=== PATIENT | male | born 1960 | race Caucasian/White ===

== ENCOUNTER 2016-10-17 14:43 | Inpatient (IN) | payer MEDICAID ==
[~2016-10-17] VITALS: Ht 170.2 cm; Wt 99.8 kg
[~2016-10-17 14:43] MED LIST: ASPI81CH43 PO; CLOP75TA28 PO; COURX10 PO; Furosemide PO; GLY5T PO; ISOS20TA56 PO; LOSA100T26 PO; METF1000 PO; METO50TA7 PO; PERCOT PO; ROSU10TA16 PO
[2016-10-17] MEDS ORDERED: ALBUTEROL SULF 2.5 MG/0.5ML(0.5%) NEB SOLN HHN STA (15:36)
[2016-10-17] MEDS ORDERED: ONDANSETRON HCL 4 MG/2 ML VIAL IV ONE (15:45)
[2016-10-17] MEDS ORDERED: IPRATROPIUM BROM 0.5 MG/2.5ML INH SOL NEB ONE (15:45)
[2016-10-17] MEDS ORDERED: LORazepam 2MG/ML-1ML VIAL IV ONE (15:45)
[2016-10-17 17:14] LABS: Basophils # (auto) 0 uL; Basophils % (auto) 0.3 % (0.0-2.0); Eosinophils # (auto) 0.1 uL; Eosinophils % (auto) 1.8 % (0.0-7.0); Hematocrit 42.3 % (41.0-53.0); Hemoglobin 14.9 g/dL (13.5-17.5); Lymphocytes # (auto) 1.5 uL; Lymphocytes % (auto) 22.4 % (10.0-50.0); Mean Corpuscular Hemoglobin 31.2 pg (28.0-32.0); Mean Corpuscular Hgb Conc. 35.1 g/dL (32.0-36.0); Mean Corpuscular Volume 88.9 fL (80.0-100.0); Mean Platelet Volume 11.1 fL (7.4-10.4); Monocytes # (auto) 0.6 uL; Monocytes % (auto) 9.6 % (0.0-12.0); Neutrophils # (auto) 4.4 uL; Neutrophils % (auto) 65.9 % (37.0-80.0); Platelet Count (auto) 140 10^3/uL (140-450); Red Cell Distribution Width 13.4 % (11.6-16.0); White Blood Cell 6.7 10^3/uL (4.4-10.8)
[2016-10-17 19:35] LABS: Albumin 2.7 g/dL (3.4-5.0); BUN/Creatinine Ratio 11.6; Calcium 7.7 mg/dL (8.5-10.1); Magnesium 1.9 mg/dL (1.6-2.6); Potassium 3.5 mmol/L (3.5-5.1)
[2016-10-17 19:44] LABS: B-Type Natriuretic Peptide 77.54 pg/mL (0-100)
[2016-10-17 19:51] LABS: Temperature: 23.1 C (20.0-25.0)
[2016-10-17 20:23] LABS: Bilirubin, Total 0.3 mg/dL (0.2-1.0); Total Protein 6.5 g/dL (6.4-8.2)
[2016-10-17 20:32] LABS: Lactic Acid 3.6 mmol/L (0.4-2.0)
[2016-10-17 20:38] LABS: REFLEX LACTIC ACID YES OR NO NO
[2016-10-17 21:28] LABS: INR 0.97 (0.9-1.15); Partial Thromboplastin Time 27.3 sec (22.64-33.71)
[2016-10-17] MEDS ORDERED: IOHEXOL 350 MG/ML 100ML IJ ONE (21:54)
[2016-10-17] MEDS ORDERED: HYDROcodone-ACET 5/325MG TAB PO PRN (23:00)
[2016-10-17] MEDS ORDERED: SODIUM CHLORIDE 0.9% 1,000 ML IV ONE (23:00)
[2016-10-17] MEDS ORDERED: cefTRIAXone 1GM/50ML D5W 50 ML IV ONE (23:00)
[2016-10-17] MEDS ORDERED: METOPROLOL SUCCINATE XL 50 MG TAB PO ONE (23:00)
[2016-10-17] MEDS ORDERED: ALBUTEROL SULF 2.5 MG/0.5ML(0.5%) NEB SOLN NEB PRN (23:00)
[2016-10-17] MEDS ORDERED: ENOXAPARIN SOD 100 MG/1 ML SYRINGE SC ONE (23:00)
[2016-10-17] MEDS ORDERED: SODIUM CHLORIDE 0.9% 500 ML IV ONE (23:00)
[2016-10-17] MEDS ORDERED: ONDANSETRON HCL 4 MG/2 ML VIAL IV PRN (23:00)
[2016-10-17] MEDS ORDERED: MORPHINE SULF INJ 2 MG/ML SYRINGE 1ML IV PRN (23:00)
[2016-10-17] MEDS ORDERED: ACETAMINOPHEN 325 MG TAB PO PRN (23:00)
[2016-10-17] MEDS ORDERED: DEXTROSE (50%) 50ML SYRG IV PRN (23:00)
[2016-10-17] MEDS ORDERED: NITROGLYCERIN 0.4 MG SL TAB SL PRN (23:00)
[2016-10-17 23:17] VITALS: BP 174/73
[2016-10-17] MEDS: ISOSORBIDE DINITRATE 10 MG TAB PO SCH (23:27)
[2016-10-18] VITALS (7 sets, daily range): BP systolic 118–142; BP diastolic 59–94
[2016-10-18] MEDS: ACCU-CHEK COMFORT CURVE STRIP VI SCH ×5 (00:24→23:41)
[2016-10-18] MEDS: InsuLIN REG 1unit/0.01ml Soln (100units/ml) SC SCH ×5 (01:00→23:46)
[2016-10-18] MEDS: ISOSORBIDE DINITRATE 10 MG TAB PO SCH ×3 (06:08→18:13)
[2016-10-18 07:28] LABS: Basophils # (auto) 0 uL; Basophils % (auto) 0.4 % (0.0-2.0); Eosinophils # (auto) 0.1 uL; Eosinophils % (auto) 0.8 % (0.0-7.0); Hematocrit 35.2 % (41.0-53.0); Hemoglobin 12.3 g/dL (13.5-17.5); Lymphocytes # (auto) 1.6 uL; Lymphocytes % (auto) 18.4 % (10.0-50.0); Mean Corpuscular Hemoglobin 31.2 pg (28.0-32.0); Mean Corpuscular Volume 88.9 fL (80.0-100.0); Mean Platelet Volume 9.5 fL (7.4-10.4); Monocytes # (auto) 0.7 uL; Monocytes % (auto) 8.6 % (0.0-12.0); Neutrophils # (auto) 6.2 uL; Neutrophils % (auto) 71.8 % (37.0-80.0); Platelet Count (auto) 154 10^3/uL (140-450); Red Cell Distribution Width 13.8 % (11.6-16.0); White Blood Cell 8.6 10^3/uL (4.4-10.8)
[2016-10-18 07:52] LABS: Albumin 2.6 g/dL (3.4-5.0); Bilirubin, Total 0.4 mg/dL (0.2-1.0); Calcium 7.9 mg/dL (8.5-10.1); Potassium 3.7 mmol/L (3.5-5.1); Total Protein 6.2 g/dL (6.4-8.2)
[2016-10-18] MEDS: METOPROLOL SUCCINATE XL 50 MG TAB PO SCH (10:00)
[2016-10-18] MEDS: LOSARTAN POTASSIUM 25 MG TAB PO SCH (10:00)
[2016-10-18] MEDS: CLOPIDOGREL BISULFATE 75 MG TAB PO SCH (10:37)
[2016-10-18] MEDS: HCTZ 25 MG TAB PO SCH (10:37)
[2016-10-18] MEDS: FUROSEMIDE 20 MG TAB PO SCH (10:38)
[2016-10-18] MEDS: FAMOTIDINE 20 MG TAB PO SCH ×2 (10:38→22:48)
[2016-10-18] MEDS: ENOXAPARIN SOD 40 MG/0.4 ML SYRINGE SC SCH (10:41)
[2016-10-18 12:56] LABS: Urine Bilirubin Negative (Negative); Urine Color Yellow (Yellow); Urine Ketone Negative (Negative); Urine Mucus FEW (None Seen); Urine Nitrite Negative (Negative); Urine Squamous Epithelial Cell FEW /hpf (<5); Urine Urobilinogen Normal (Negative)
[2016-10-18 12:59] LABS: Urine RBC 9 /hpf (0 - 3)
[2016-10-18 13:36] LABS: Urine Blood 1+ /uL (Negative); Urine Glucose 4+ mg/dL (Normal)
[2016-10-18] MEDS ORDERED: ATORVASTATIN 20 MG TAB PO SCH (22:00)
[2016-10-18] MEDS ORDERED: cefTRIAXone 1GM/50ML D5W 50 ML IV SCH (22:00)
[2016-10-18] MEDS ORDERED: PATIENTS OWN MEDICATION (crestor 20 MG) PO SCH (22:00)
[2016-10-19 05:00] VITALS: BP 149/95
[2016-10-19] MEDS: ACCU-CHEK COMFORT CURVE STRIP VI SCH (06:00)
[2016-10-19] MEDS: InsuLIN REG 1unit/0.01ml Soln (100units/ml) SC SCH (06:00)
[2016-10-19] MEDS: ISOSORBIDE DINITRATE 10 MG TAB PO SCH (06:15)
[2016-10-19 08:08] LABS: Potassium 3.7 mmol/L (3.5-5.1)
[2016-10-19 09:00] VITALS: BP 140/72
[2016-10-19] MEDS ORDERED: RIVAROXABAN 20 MG TAB PO ONE (09:15)
[2016-10-19] MEDS: CLOPIDOGREL BISULFATE 75 MG TAB PO SCH (09:52)
[2016-10-19] MEDS: ENOXAPARIN SOD 40 MG/0.4 ML SYRINGE SC SCH (09:52)
[2016-10-19] MEDS: FAMOTIDINE 20 MG TAB PO SCH (09:52)
[2016-10-19] MEDS: FUROSEMIDE 20 MG TAB PO SCH (09:53)
[2016-10-19] MEDS: LOSARTAN POTASSIUM 25 MG TAB PO SCH (09:53)
[2016-10-19] MEDS: HCTZ 25 MG TAB PO SCH (09:53)
[2016-10-19] MEDS: METOPROLOL SUCCINATE XL 50 MG TAB PO SCH (09:54)
[2016-10-19] MEDS ORDERED: LOSA25TA9 PO (10:31)
[2016-10-19 10:37] VITALS: BP 140/72
== END 2016-10-19 12:15 | disposition home or self-care (01) | DRG 144 ==
LOC: EDBD 14:43 → ER 14:43 → TELE 14:44 → TELE-WESTW 23:54
PROVIDERS: ADMIT Nurse Practitioner; ATTEND Internal Medicine
DX: J20.9 Acute bronchitis, unspecified (principal); J96.00 Acute respiratory failure, unspecified whether with hypoxia or hypercapnia; E43 Unspecified severe protein-calorie malnutrition; I50.33 Acute on chronic diastolic (congestive) heart failure; E11.65 Type 2 diabetes mellitus with hyperglycemia; I11.0 Hypertensive heart disease with heart failure; E78.5 Hyperlipidemia, unspecified; E66.9 Obesity, unspecified; I25.10 Atherosclerotic heart disease of native coronary artery without angina pectoris; Z86.73 Personal history of transient ischemic attack (TIA), and cerebral infarction without residual deficits; Z87.891 Personal history of nicotine dependence; Z95.1 Presence of aortocoronary bypass graft; I25.2 Old myocardial infarction; Z95.5 Presence of coronary angioplasty implant and graft; Z90.89 Acquired absence of other organs; Z80.3 Family history of malignant neoplasm of breast; Z82.49 Family history of ischemic heart disease and other diseases of the circulatory system; Z83.3 Family history of diabetes mellitus; Z68.34 Body mass index [BMI] 34.0-34.9, adult; Z91.14 Patient's other noncompliance with medication regimen; Z79.01 Long term (current) use of anticoagulants
CPT/HCPCS: 36415; 71010; 71275; 80048; 80053; 81001; 82962; 83036; 83605; 83735; 83880; 84484; 85025; 85379; 85610; 85730; 87040; 87086; 93971; 94640; 94761; 96372; 96374; 96375; J0696; J1815; J2405

== ENCOUNTER 2019-05-05 00:55 | Inpatient (IN) | payer MEDICAID, OTHER ==
[~2019-05-05] VITALS: Ht 170.2 cm; Wt 90.4 kg
[~2019-05-05 00:55] MED LIST changes: -ASPI81CH43 PO; -COURX10 PO; -ISOS20TA56 PO; -LOSA100T26 PO; +LOSA25TA38 PO; +METO-6 PO; -METO50TA7 PO; -PERCOT PO
[2019-05-05] MEDS: cloNIDine HCL 0.1 MG TAB PO ONE ×2 (01:30→01:46)
[2019-05-05] MEDS ORDERED: ONDANSETRON HCL 4 MG/2 ML VIAL IV ONE (01:30)
[2019-05-05] MEDS ORDERED: MORPHINE SULFATE 4 MG/ML SYR/VIAL IV ONE (01:30)
[2019-05-05 01:59] LABS: Basophils # (auto) 0.1 uL; Basophils % (auto) 1.2 % (0.0-2.0); Eosinophils # (auto) 0.2 uL; Eosinophils % (auto) 1.4 % (0.0-7.0); Hematocrit 25.9 % (41.0-53.0); Hemoglobin 8.9 g/dL (13.5-17.5); Lymphocytes # (auto) 1.1 uL; Lymphocytes % (auto) 9.2 % (10.0-50.0); Mean Corpuscular Hemoglobin 32.2 pg (28.0-32.0); Mean Corpuscular Hgb Conc. 34.5 g/dL (32.0-36.0); Mean Corpuscular Volume 93.4 fL (80.0-100.0); Monocytes # (auto) 1.1 uL; Monocytes % (auto) 9.5 % (0.0-12.0); Neutrophils # (auto) 9.2 uL; Neutrophils % (auto) 78.7 % (37.0-80.0); Nucleated Red Blood Cells % 0.1 %; Platelet Count (auto) 158 10^3/uL (140-450); Red Blood Cells 2.77 10^6/uL (4.5-5.90); Red Cell Distribution Width 13.6 % (11.8-14.3); White Blood Cell 11.7 10^3/uL (4.4-10.8)
[2019-05-05] MEDS ORDERED: DILTIAZEM HCL 25 MG/5 ML VIAL IV ONE (02:00)
[2019-05-05 02:19] LABS: Albumin 2.8 g/dL (3.4-5.0); BUN/Creatinine Ratio 10.3; Calcium 7.9 mg/dL (8.5-10.1)
[2019-05-05 02:24] LABS: Bilirubin, Total 0.7 mg/dL (0.2-1.0); Total Protein 6.7 g/dL (6.4-8.2)
[2019-05-05] MEDS ORDERED: DIGOXIN (250MCG/ML) 2 ML AMPULE IV ONE (03:00)
[2019-05-05] MEDS ORDERED: ONDANSETRON HCL 4 MG/2 ML VIAL IV PRN (05:45)
[2019-05-05] MEDS ORDERED: ACETAMINOPHEN 325 MG TAB PO PRN (05:45)
[2019-05-05] MEDS ORDERED: TEMAZEPAM 15 MG CAP PO PRN (05:45)
[2019-05-05] MEDS ORDERED: FUROSEMIDE 20 MG/2 ML VIAL IV ONE (05:45)
[2019-05-05] MEDS ORDERED: DEXTROSE (50%) 50ML SYRG IV PRN (05:45)
[2019-05-05] MEDS: ACCU-CHEK COMFORT CURVE STRIP VI SCH ×3 (06:27→18:00)
[2019-05-05] MEDS ORDERED: ENOXAPARIN SOD 100 MG/1 ML SYRINGE SC ONE (06:30)
[2019-05-05] MEDS: InsuLIN REG 1unit/0.01ml Soln (100units/ml) SC SCH ×3 (06:35→18:00)
[2019-05-05] MEDS ORDERED: hydrALAZINE HCL 20 MG/ML VL IV ONE (06:45)
[2019-05-05] MEDS: PANTOPRAZOLE 40 MG TAB PO SCH (07:56)
[2019-05-05 09:00] VITALS: BP 176/83
--- NOTE | 2019-05-05 09:00 | NUR ---
Telemetry admit from ER Admitted to Telemetry unit after report received. Patient oriented to primary RN, unit, room, bed, and unit policies regarding patient care and visiting hours. Patient now on continuous telemetry monitoring, tele box #28. Patient placed on bedside oxygen, weighed by bedscale and encouraged to call if they need something. All questions and concerns addressed, patient verbalized understanding. Patient is alert and oriented with forgetfulness. Some shaking noted to BUE.
[2019-05-05] MEDS ORDERED: FUROSEMIDE 40 MG TAB PO SCH (10:00)
[2019-05-05] MEDS ORDERED: LOSARTAN POTASSIUM 25 MG TAB PO SCH (10:00)
--- NOTE | 2019-05-05 10:30 | NUR ---
Elevated troponin Received notification from lab that patient's troponin is critical at 13.9. Called and left a message with Dr. Dangelo.
[2019-05-05] MEDS ORDERED: OPTISON 3ml Vial for INJ IV ONE (10:36)
[2019-05-05] MEDS: SOD CHL 0.45% 1,000 ML IV SCH (11:18)
[2019-05-05] MEDS: LEVOFLOXACIN 250MG 50 ML IV SCH (11:19)
[2019-05-05] MEDS: LEVETIRACETAM 500 MG TAB PO SCH ×2 (11:19→23:55)
[2019-05-05] MEDS: ASPirin 81 mg TAB PO SCH (11:19)
[2019-05-05] MEDS: CLOPIDOGREL BISULFATE 75 MG TAB PO SCH (11:19)
[2019-05-05] MEDS: CARVEDILOL 3.125 MG TAB PO SCH ×2 (11:20→22:00)
[2019-05-05 13:00] VITALS: BP 149/84
[2019-05-05] MEDS: NITROGLYCERIN 0.4 MG SL TAB SL PRN ×3 (14:40→15:26)
[2019-05-05] MEDS ORDERED: HEPARIN SODIUM (PORCINE) 5000 UNITS/ML 1ML VIAL IV ONE ×2 (14:45→15:45)
--- NOTE | 2019-05-05 14:52 | NUR ---
Troponin/chest pressure/transfer to [facility] Received a call from Dr. Joyner. New orders received and entered into computer, including heparin drip and stat EKG. Received a call from Dr. Dangelo shortly after and received order to transfer patient to [facility] or ICU. Bed available in [facility]. Will transfer patient. Nitro given SL per PRN order for pt c/o chest pressure and SOB. Will recheck and administer second dose as ordered if necessary.
--- NOTE | 2019-05-05 15:23 | NUR ---
TRANSFERRED PATIENT WAS TRANSFERRED IN BED TO [facility] AFTER REPORT WAS GIVEN TO SURENDRA. NITRO WAS GIVEN JUST BEFORE TRANSFER DUE TO PATIENT STATING THE FIRST DOSE DID NOT HELP. VITAL SIGNS WERE TAKEN. PATIENT ALERT AND ORIENTED.
--- NOTE | 2019-05-05 15:25 | NUR ---
Patient in room 264. Patient on the monitor. Patient still complaining of chest pain and pressure. Stat EKG done. 2 doses of nitro given with no relief. Patient given morphine for chest pain, Patient states pain now between 4-5. Patients BP also high 180-190. Results of EKG to be called to Dr. Joyner. IV 20G right wrist running 0.45NS at 75ml/hr patent, clean, dry, and intact. Left neck EJ painful and does not flush, will remove. Patient on 2L NC saturation at 98%. Will continue to monitor.
[2019-05-05] MEDS: MORPHINE SULF INJ 2 MG/ML SYRINGE 1ML IV PRN (15:31)
[2019-05-05] MEDS ORDERED: HEPARIN DRIP/D5W 100UNITS/ML 250 ML IV SCH (15:45)
[2019-05-05] MEDS ORDERED: NITROGLYCERIN 50MG/250ML 250 ML IV ONE (15:58)
--- NOTE | 2019-05-05 16:00 | NUR ---
Spoke with Dr. Joyner, New orders for Nitro drip set rate of 10mcg/min. Review EKG with Dr. Joyner. Will continue to monitor.
[2019-05-05 16:04] LABS: Eosinophils # (auto) 0.2 uL; Eosinophils % (auto) 2.5 % (0.0-7.0); Monocytes # (auto) 0.7 uL; White Blood Cell 7.5 10^3/uL (4.4-10.8)
[2019-05-05 16:05] LABS: Basophils # (auto) 0.1 uL; Basophils % (auto) 0.7 % (0.0-2.0); Hematocrit 24.2 % (41.0-53.0); Hemoglobin 8.2 g/dL (13.5-17.5); Lymphocytes # (auto) 1.8 uL; Lymphocytes % (auto) 23.4 % (10.0-50.0); Mean Corpuscular Hemoglobin 32.3 pg (28.0-32.0); Monocytes % (auto) 9.1 % (0.0-12.0); Neutrophils # (auto) 4.8 uL; Neutrophils % (auto) 64.3 % (37.0-80.0); Nucleated Red Blood Cells % 0.1 %; Platelet Count (auto) 150 10^3/uL (140-450); Red Blood Cells 2.55 10^6/uL (4.5-5.90); Red Cell Distribution Width 13.6 % (11.8-14.3)
--- NOTE | 2019-05-05 16:16 | NUR ---
Dr. James notified of BUN/Creat levels This nurse called and left Dr. James know of the patient's elevated BUN and creatinine levels. She stated she is not consulting today, but would be at the hospital tomorrow to do consultations and to notify [facility] if the consultation is urgent.
[2019-05-05 16:18] LABS: INR 0.97 (0.9-1.15); Partial Thromboplastin Time 32.4 sec (23.64-32.05)
[2019-05-05] MEDS ORDERED: CARV6.2551 PO (16:28)
[2019-05-05] MEDS ORDERED: ISOS30TA4 PO (16:28)
[2019-05-05] MEDS ORDERED: ATOR40TA52 PO (16:28)
[2019-05-05] MEDS ORDERED: CITA-77 PO (16:28)
[2019-05-05] MEDS ORDERED: FURO40TA4 PO (16:28)
[2019-05-05] MEDS ORDERED: KEP500T PO (16:28)
[2019-05-05] MEDS ORDERED: HYDR50TA15 PO (16:28)
[2019-05-05] MEDS ORDERED: AML5T PO (16:28)
[2019-05-05] MEDS ORDERED: METO5TAB56 PO (16:28)
[2019-05-05] MEDS ORDERED: NITROGLYCERIN 50MG/250ML 250 ML IV SCH ×2 (16:45→20:30)
--- NOTE | 2019-05-05 17:00 | NUR ---
Spoke with Dr. Bansal. Patient will have Angiogram tomorrow AM. NPO after midnight. Stop Heparin drip at 3am. Order Troponin. Consult Dr. Evans for Dialysis cath and possible Dialysis tomorrow after angiogram.
[2019-05-05] MEDS: NITROGLYCERIN 50MG/250ML 250 ML IV SCH (17:30)
[2019-05-05 18:00] VITALS: BP 194/68
--- NOTE | 2019-05-05 18:30 | NUR ---
End of Patient A&Ox4. Patient NPO. Patient on the monitor. Patient on 2L NC saturation at 99%. IV right wrist 20G running 0.45NS at 75 and Nitro drip at 25mcg/min, left forearm 20G running Heparin drip at 11ml/hr. Both IV's patent, clean, dry, and intact. No S/S of distress/SOB or pain. Bed locked and in the lowest position, side rails up x2, call light with in reach. Report to be given to night monitor RN. Will continue to monitor. Addendum: 05/05/19 at 2054 by Rhina Villavicencio RN End of shift Note:
--- NOTE | 2019-05-05 18:50 | NUR ---
Consents for Angiogram, blood, and anesthesia signed and in the chart. OR Check list to be done. Patient also wanted to update Code status. Patient requested to be DNR. Explained to patient what DNR means and Patient states he does not want anything other than comfort measures. DNR signed by Patient and myself pending MD signature.
--- NOTE | 2019-05-05 19:00 | NUR ---
Password change Patient requesting to change password to "John". Patient does not want any information given to Kermit (friend). All information to be given to Ex- Allison phone number [phone].
[2019-05-05 20:24] VITALS: BP 165/48
--- NOTE | 2019-05-05 20:46 | NUR ---
STAT CONSULT CALLED TO EXCHANGE
--- NOTE | 2019-05-05 20:54 | NUR ---
Spoke with Dr. Nathan russell to place dialysis catheter tomorrow. He will schedule patient for Dialysis tomorrow.
[2019-05-05] MEDS: ATORVASTATIN 20 MG TAB PO SCH (23:56)
[2019-05-06] VITALS: BP 173/71
[2019-05-06] MEDS: SOD CHL 0.45% 1,000 ML IV SCH ×2 (00:12→14:28)
[2019-05-06] MEDS: ACCU-CHEK COMFORT CURVE STRIP VI SCH ×4 (00:12→18:00)
[2019-05-06 01:11] LABS: INR 0.95 (0.9-1.15); Partial Thromboplastin Time 32.9 sec (23.64-32.05)
--- NOTE | 2019-05-06 03:00 | NUR ---
Heparin DC'd as ordered. Pt stable at this time. Elevated BP 189/73, HR 55. Will reassess and continue to monitor.
[2019-05-06] MEDS: CARVEDILOL 3.125 MG TAB PO SCH ×2 (03:54→14:27)
[2019-05-06 04:00] VITALS: BP 190/69
--- NOTE | 2019-05-06 04:05 | NUR ---
The Coreg that was held at 2200 due to bradycardia was given at 0350, BP 181/64, HR fluctuating from 45 to 69 at this time. Pt denies pain, diaphoretic, temp 97.4. States periodically has night sweats. Critical Trop 19.20, AM shift stated MD was aware it would be elevated and would be increased from last one recorded. Will continue to monitor.
--- NOTE | 2019-05-06 05:30 | NUR ---
Pt stable BP now sys 133. Resting comfortably denies pain. Will continue to monitor.
[2019-05-06 05:46] LABS: Basophils # (auto) 0 uL; Basophils % (auto) 0.8 % (0.0-2.0); Eosinophils # (auto) 0.2 uL; Eosinophils % (auto) 3.9 % (0.0-7.0); Hematocrit 21.6 % (41.0-53.0); Hemoglobin 7.6 g/dL (13.5-17.5); Lymphocytes # (auto) 1.4 uL; Lymphocytes % (auto) 25.4 % (10.0-50.0); Mean Corpuscular Hgb Conc. 35.5 g/dL (32.0-36.0); Mean Corpuscular Volume 93.2 fL (80.0-100.0); Monocytes # (auto) 0.6 uL; Monocytes % (auto) 10.8 % (0.0-12.0); Neutrophils # (auto) 3.2 uL; Neutrophils % (auto) 59.1 % (37.0-80.0); Platelet Count (auto) 132 10^3/uL (140-450); Red Blood Cells 2.31 10^6/uL (4.5-5.90); Red Cell Distribution Width 13.5 % (11.8-14.3); White Blood Cell 5.3 10^3/uL (4.4-10.8)
[2019-05-06 05:59] LABS: BUN/Creatinine Ratio 10.4; Calcium 7.9 mg/dL (8.5-10.1); Potassium 3.7 mmol/L (3.5-5.1)
[2019-05-06] MEDS: InsuLIN REG 1unit/0.01ml Soln (100units/ml) SC SCH ×4 (06:00→18:00)
[2019-05-06] MEDS: PANTOPRAZOLE 40 MG TAB PO SCH (07:00)
[2019-05-06] MEDS ORDERED: LIDOCAINE 2%HCL (LOCAL ANESTH.) INJ 20ML MDV ONE (07:25)
[2019-05-06] MEDS ORDERED: IODIXANOL 320MG/ML 100ML BTL IV ONE ×2 (07:25→08:06)
[2019-05-06] MEDS ORDERED: fentaNYL CITRATE 100 MCG/2 ML VL ONE (07:44)
[2019-05-06] MEDS ORDERED: ANGIOMAX 250 MG VIAL IV ONE (07:44)
[2019-05-06] MEDS ORDERED: SODIUM CHL 0.9% 0 ML ONE (07:45)
[2019-05-06] MEDS ORDERED: MIDAZOLAM HCL 1MG/1ML-2 ML VIAL ONE (07:45)
--- NOTE | 2019-05-06 08:00 | NUR ---
Opening Shift Note Assumed care of patient, awake and alert. Patient A&Ox4. Patient on the monitor. Patient on 2L NC saturation at 98%. IV right wrist 20G saline locked and left forearm 20G running 0.45NS and Nitro set rate of 25mcg/min, both IV's patent, clean, dry, and intact. No S/S of distress/SOB or pain. Instructed on POC and to call for assist. Bed locked and in the lowest position, side rails up x2, call light with in reach. Will continue to monitor.
--- NOTE | 2019-05-06 08:00 | NUR ---
Pt stable and transported to labor commissioner via bed. Alert and oriented. Pt's meds sent to pharmacy. Report given, care endorsed.
--- NOTE | 2019-05-06 09:15 | NUR ---
Patient back from laborer pipeline. Patient is to lay flat until 11. No bleeding from right groin yayo cath. Will continue to monitor.
[2019-05-06 09:20] VITALS: BP 175/65
--- NOTE | 2019-05-06 09:45 | NUR ---
Dr. Dangelo at bedside. Order to consult Dr. Joyner about continuing heparin drip and possibly starting patient on Coumadin. Will page Dr. Joyner.
[2019-05-06] MEDS ORDERED: ATORVASTATIN 20 MG TAB PO ONE (10:00)
[2019-05-06] MEDS ORDERED: amLODIPine BESYLATE 5 MG TAB PO SCH (10:00)
--- NOTE | 2019-05-06 10:00 | NUR ---
Medications held. Dialysis nurse at bedside. Medications will be given after dialysis. No bleeding noted from right groin Carroll cath.Will continue to monitor.
[2019-05-06] MEDS ORDERED: SODIUM CHL 0.9% 1000 ML BAG XX ONE (10:45)
[2019-05-06 12:00] VITALS: BP 194/71
--- NOTE | 2019-05-06 12:45 | NUR ---
Patient sitting up in bed eating lunch. Dialysis still being done. Still no bleeding noted from right groin Carroll cath. Will continue to monitor.
--- NOTE | 2019-05-06 13:00 | NUR ---
Spoke with Dr. Joyner. Stop heparin drip and start Hydralazine 100mg PO BID. Keep patient on aspirin and Plavix for now. Will continue to monitor.
--- NOTE | 2019-05-06 14:00 | NUR ---
Medication dosages, usages, and side effects explained to patient. Patient verbalized understanding. Will continue to monitor.
[2019-05-06] MEDS: LEVOFLOXACIN 250MG 50 ML IV SCH (14:25)
[2019-05-06] MEDS: ASPirin 81 mg TAB PO SCH (14:25)
[2019-05-06] MEDS: LEVETIRACETAM 500 MG TAB PO SCH ×2 (14:25→22:45)
[2019-05-06] MEDS: CLOPIDOGREL BISULFATE 75 MG TAB PO SCH (14:26)
[2019-05-06] MEDS: hydrALAZINE HCL 25 MG TAB PO SCH ×2 (14:27→22:25)
[2019-05-06 16:00] VITALS: BP 167/68
--- NOTE | 2019-05-06 16:00 | NUR ---
Patient resting at this time. No S/S of pain/SOB or distress at this time. Will continue to monitor.
[2019-05-06 17:29] LABS: Hepatitis A Ab IgM Negative; Hepatitis B Core IgM Negative
[2019-05-06 17:30] LABS: Hepatitis B Surface Antigen Negative (Negative); Hepatitis C Antibody Negative (Negative)
[2019-05-06] MEDS: amLODIPine BESYLATE 5 MG TAB PO SCH (18:03)
[2019-05-06] MEDS: NITROGLYCERIN 50MG/250ML 250 ML IV SCH (18:05)
--- NOTE | 2019-05-06 18:30 | NUR ---
End of shift Note: Patient sitting up in bed eating dinner talking with family. Patient A&Ox4. Patient on the monitor. Patient on 2L NC saturation at 97%. IV left forearm 20G running 0.45NS at 75ml/hr and Nitro set rate of 25mcg/min patent, clean, dry, and intact. Carroll cath right groin clean, dry, and intact. No S/S of distress/SOB or pain. Patient denies any chest pain at this time. Bed locked and in the lowest position, side rails up x2, call light with in reach. Report to be given to collections manager RN. Will continue to monitor.
--- NOTE | 2019-05-06 19:23 | NUR ---
Opening Shift Note Assumed care of patient, awake and alert. Patient A&Ox4. Patient is on alok monitors. Patient on 2L NC respirations are equal and unlabored. pt is on nitroglycerin drip at 25mcg/min. pt states he is not in pain. pt able to turn himself and stand with assistance. bed is in the lowest locked position. 2 siderails up. pt educated azure principal solution specialist light, pt verbalized understanding, call light within reach. pt is within full view of rn station. will continue to care for and monitor.
[2019-05-06] MEDS ORDERED: EPOETIN ALFA 10,000 UNIT/1 ML VIAL SC ONE (21:00)
[2019-05-06] MEDS: ATORVASTATIN 20 MG TAB PO SCH (22:45)
[2019-05-06 22:56] VITALS: BP 132/40
--- NOTE | 2019-05-06 23:00 | NUR ---
no ss of distress noted at this time. vs stable at this time. pt is sitting up in bed watching tv. will continue to care for and monitor
[2019-05-07] VITALS (14 sets, daily range): BP systolic 144–203; BP diastolic 52–81
[2019-05-07] MEDS: ACCU-CHEK COMFORT CURVE STRIP VI SCH ×5 (00:05→23:51)
[2019-05-07] MEDS: InsuLIN REG 1unit/0.01ml Soln (100units/ml) SC SCH ×5 (00:18→23:50)
[2019-05-07] MEDS: SOD CHL 0.45% 1,000 ML IV SCH ×2 (01:08→14:03)
--- NOTE | 2019-05-07 01:20 | NUR ---
pt stated he was extremely cold pt temp is 98.5, pt was provided with additional blankets.
[2019-05-07] MEDS: MORPHINE SULF INJ 2 MG/ML SYRINGE 1ML IV PRN ×2 (05:41→16:01)
--- NOTE | 2019-05-07 05:58 | NUR ---
cp pt complains of sever cp, bp 194/75 hr 63, ekg preformed.pt given prescribed medication for cp. will monitor
--- NOTE | 2019-05-07 06:32 | NUR ---
reassess cp pt bp is 147/60, hr 62. pt states "the pain is about a 4/10". will continue to monitor vs and patient
--- NOTE | 2019-05-07 08:00 | NUR ---
Opening Shift Note Assumed care of patient, awake and alert. No S/S of distress/SOB or pain. Instructed on POC and to call for assist PRN, will continue to monitor for changes Q1hr and PRN. IV at left forearm occluded, hard to touch at the end of the tip of IV, patient didn't complaining of pain, but couldn't flush.
--- NOTE | 2019-05-07 08:15 | NUR ---
IV removal from left forearm IV DC'd with clean sterile technique, catheter fully intact. Pressure dressing applied to site. Patient tolerated well.
--- NOTE | 2019-05-07 08:30 | NUR ---
IV insertion IV access obtained, via clean sterile technique by inserting 20 gauge catheter at right forearm after 4 attempts. IV secured properly. No trauma to site. Patient tolerated procedure well.
--- NOTE | 2019-05-07 09:20 | NUR ---
Dr. Dangelo at the bedside, seen and examined patient at this time, MD made aware BP and NTG drip, SBP 180-200 mmHg, received new orders, patient made aware, will continue to monitor and care. Waiting for Nephrology, if no dialysis, patient able to transfer to Tele. Patient agreed.
--- NOTE | 2019-05-07 09:45 | NUR ---
Called and left the message to Dr. Evans, waiting a call back from
--- NOTE | 2019-05-07 10:10 | NUR ---
Received a call back from Dr. Evans, received order for CBC, CMP. Patient made aware about the plan that waiting for the result then will see that he will need dialysis or not.
[2019-05-07] MEDS: PANTOPRAZOLE 40 MG TAB PO SCH (10:37)
[2019-05-07] MEDS: LEVOFLOXACIN 250MG 50 ML IV SCH (10:37)
[2019-05-07] MEDS: ASPirin 81 mg TAB PO SCH (10:37)
[2019-05-07] MEDS: LEVETIRACETAM 500 MG TAB PO SCH ×2 (10:42→22:09)
[2019-05-07] MEDS: CARVEDILOL 12.5 MG TAB PO SCH ×2 (10:42→22:00)
[2019-05-07] MEDS: amLODIPine BESYLATE 5 MG TAB PO SCH (10:43)
[2019-05-07 11:03] LABS: Basophils # (auto) 0 uL; Lymphocytes # (auto) 0.9 uL; Monocytes # (auto) 0.6 uL; Red Blood Cells 2.49 10^6/uL (4.5-5.90)
[2019-05-07 11:05] LABS: Basophils % (auto) 0.7 % (0.0-2.0); Eosinophils # (auto) 0.3 uL; Eosinophils % (auto) 4.3 % (0.0-7.0); Hematocrit 23.1 % (41.0-53.0); Hemoglobin 8.1 g/dL (13.5-17.5); Lymphocytes % (auto) 14.4 % (10.0-50.0); Mean Corpuscular Hemoglobin 32.5 pg (28.0-32.0); Mean Corpuscular Hgb Conc. 35.1 g/dL (32.0-36.0); Mean Corpuscular Volume 92.7 fL (80.0-100.0); Monocytes % (auto) 9.8 % (0.0-12.0); Neutrophils # (auto) 4.3 uL; Neutrophils % (auto) 70.8 % (37.0-80.0); Platelet Count (auto) 143 10^3/uL (140-450); Red Cell Distribution Width 12.9 % (11.8-14.3); White Blood Cell 6.1 10^3/uL (4.4-10.8)
[2019-05-07 11:25] LABS: Albumin 2.7 g/dL (3.4-5.0); Calcium 7.8 mg/dL (8.5-10.1); Potassium 3.7 mmol/L (3.5-5.1)
[2019-05-07 11:28] LABS: BUN/Creatinine Ratio 8.4; Bilirubin, Total 0.4 mg/dL (0.2-1.0); Total Protein 6.6 g/dL (6.4-8.2)
--- NOTE | 2019-05-07 12:04 | NUR ---
Stopped NTG drip at this time as ordered, BP 155/56 mmHg, will continue to monitor and care, patient made aware.
--- NOTE | 2019-05-07 12:12 | NUR ---
Called and left the message to Dr. Evans, waiting a call back from MD regarding Lab results.
--- NOTE | 2019-05-07 12:14 | NUR ---
NUTRITION ASSESSMENT NOTES Please refer to link notes of nutrition screen form filed under the intervention section of the plan of care for further details. Est. Needs: 1800 kcal to 2250 kcal (20-25 kcal/kgBW), 89 gms to 135 gms pro (1.0-1.5 gms/kgBW d/t ESRD on HD). Will continue to monitor pertinent labs and reassess nutrient need prn Thank you. Addendum: 05/07/19 at [address] Amended: Links added.
--- NOTE | 2019-05-07 12:47 | NUR ---
Received a call back from Dr. Nathan MD made aware about the blood results, will continue to monitor and care, no dialysis today and agreed that patient can transfer to Tele.
--- NOTE | 2019-05-07 14:22 | NUR ---
Assessment Pt is a 59 yr old alert and oriented male. Prior to admit, pt lived with friend who was his caregiver but pt stated that when he gets out of the hospital, he is planning on moving in with family members in [place] who could help take care of him. Pt's ex- is in the area and is his emergency contact at [phone]. Pt uses a walker and cane to assist in ambulating. Pt states that he is diabetic and on insulin. Pt is not currently on HH, dialyisis, hospice, etc. Pt's Primary is Dr Jade. Pt does not have and AD on file but stated that he was a DNR. Pt's friend will transport pt upon d/c. Pt stated that he feels safe to D/C home upon medical clearance. Addendum: 05/07/19 at 1428 by HAYDER DE LA GARZA SS Amended: Links added.
--- NOTE | 2019-05-07 14:30 | NUR ---
SBP 140-150 mmHg, Apresoline given as ordered, will continue to monitor and care.
[2019-05-07] MEDS: hydrALAZINE HCL 25 MG TAB PO SCH ×2 (14:37→22:09)
--- NOTE | 2019-05-07 14:45 | NUR ---
Room air at this time, O2 saturation 94-95%.
[2019-05-07] MEDS: NITROGLYCERIN 0.4 MG SL TAB SL PRN (16:01)
--- NOTE | 2019-05-07 16:09 | NUR ---
At 15.45 pm, patient complaining chest pain, pressure middle of the chest, no refer pain, HR 63, BP 175/69 mmHg, Obtained EKG 12 Lead, Nitroglycerine 0.4 mg 1 tab given SL, patient complaining headache 3/10, also Morphine given. Will continue to monitor and care. No compalining of N/V noted. Resume O2 NC 3 LPM. O2 saturation 98%.
--- NOTE | 2019-05-07 16:21 | NUR ---
Dr. Evans at the bedside, plan of care discussed with patient, will follow up with the lab test tomorrow, patient made aware.
--- NOTE | 2019-05-07 16:27 | NUR ---
Patient lying on the bed, watching TV, stated that still has chest pain but less, more relax. HR 55/min, BP 162/57 mmHg. O2 saturation 98% with O2 NC 3 LPM.
[2019-05-07] MEDS ORDERED: WARFARIN SODIUM 5 MG TAB PO ONE (17:00)
--- NOTE | 2019-05-07 17:02 | NUR ---
Patient stated that no chest pain at his time, only headache, will continue to monitor and care. BP 159/60 mmHg, HR 59, o2 saturation 99%, will continue to monitor and care.
--- NOTE | 2019-05-07 17:24 | NUR ---
Called and left the message to Dr. Dangelo, regarding chest pain and BP, waiting for MD to call back.
--- NOTE | 2019-05-07 18:34 | NUR ---
Called and gave report to Marie MAZARIEGOS, patient still having dinner, will transfer after finish dinner.
--- NOTE | 2019-05-07 19:04 | NUR ---
[facility] pt transferred to floor [facility] transfered to [address] via wheelchair on nurse monitoring (Tele 14) and portable 02. All patient medications and personal belongings transfered with patient to receiving floor.
--- NOTE | 2019-05-07 19:05 | NUR ---
[facility] pt transferred to [facility] accompanied by [facility] RN,with lunchroom monitor and portable 02 at 3 liters nasal cannula.to bed ,made comfortable,connected to Tele#14 Sinus Bradycardia 59 with rare PVC's.no c/o chest pain no discomfort.
--- NOTE | 2019-05-07 19:10 | NUR ---
Report given to Angel Hutson,no distress no discomfort.
--- NOTE | 2019-05-07 19:20 | NUR ---
Opening Shift Note Assumed care of patient, awake and alert. No S/S of distress/SOB or any chest discomfort. Instructed on POC and to call for assist PRN, will continue to monitor for changes Q1hr and PRN.
[2019-05-07] MEDS: ATORVASTATIN 20 MG TAB PO SCH (22:09)
[2019-05-08] MEDS: SOD CHL 0.45% 1,000 ML IV SCH ×2 (03:15→17:22)
[2019-05-08 05:00] VITALS: BP 157/112
[2019-05-08] MEDS: hydrALAZINE HCL 25 MG TAB PO SCH ×3 (05:44→21:26)
[2019-05-08] MEDS: InsuLIN REG 1unit/0.01ml Soln (100units/ml) SC SCH ×3 (05:44→17:32)
[2019-05-08] MEDS: ACCU-CHEK COMFORT CURVE STRIP VI SCH ×3 (05:44→17:26)
[2019-05-08] MEDS: PANTOPRAZOLE 40 MG TAB PO SCH (05:44)
[2019-05-08 06:59] LABS: Basophils # (auto) 0 uL; Eosinophils # (auto) 0.2 uL; Lymphocytes # (auto) 0.9 uL; Monocytes # (auto) 0.6 uL; Red Cell Distribution Width 13.4 % (11.8-14.3)
[2019-05-08 07:02] LABS: Basophils % (auto) 0.7 % (0.0-2.0); Eosinophils % (auto) 3.4 % (0.0-7.0); Hematocrit 22.9 % (41.0-53.0); Mean Corpuscular Hemoglobin 32.6 pg (28.0-32.0); Mean Corpuscular Volume 93.1 fL (80.0-100.0); Monocytes % (auto) 9.1 % (0.0-12.0); Neutrophils # (auto) 4.5 uL; Neutrophils % (auto) 71.8 % (37.0-80.0); Platelet Count (auto) 144 10^3/uL (140-450); Red Blood Cells 2.46 10^6/uL (4.5-5.90); White Blood Cell 6.3 10^3/uL (4.4-10.8)
[2019-05-08 07:07] LABS: BUN/Creatinine Ratio 8.6; Potassium 3.8 mmol/L (3.5-5.1)
[2019-05-08 07:15] LABS: INR 0.94 (0.9-1.15)
--- NOTE | 2019-05-08 08:00 | NUR ---
Opening Shift Note Assumed care of patient, awake and alert. No S/S of distress/SOB, 4/10 chest heaviness. Instructed on POC and to alec for assist PRN, will continue to monitor for changes Q1hr and PRN.
[2019-05-08 08:42] VITALS: BP 155/72
[2019-05-08] MEDS: LEVOFLOXACIN 250MG 50 ML IV SCH (10:27)
[2019-05-08] MEDS: predniSONE 20 MG TAB PO SCH (10:27)
[2019-05-08] MEDS: amLODIPine BESYLATE 5 MG TAB PO SCH (10:28)
[2019-05-08] MEDS: ASPirin 81 mg TAB PO SCH (10:28)
[2019-05-08] MEDS: LEVETIRACETAM 500 MG TAB PO SCH ×2 (10:28→21:26)
[2019-05-08] MEDS: CARVEDILOL 12.5 MG TAB PO SCH ×2 (10:29→21:26)
--- NOTE | 2019-05-08 10:30 | NUR ---
Patient adamantly refused Chapa catheter insertion.
[2019-05-08 11:55] VITALS: BP 151/84
--- NOTE | 2019-05-08 12:10 | NUR ---
Accucheck-138mg/dl, patient requested if regular insulin SC can be held for now because he hasn't been eating well. Will hold administration of regular insulin 2units SC.
--- NOTE | 2019-05-08 14:53 | NUR ---
Tried inserting Chapa catheter on the patient but is really refusing. Dr. Dangelo made aware.
[2019-05-08 16:29] VITALS: BP 165/72
[2019-05-08] MEDS ORDERED: WARFARIN SODIUM 5 MG TAB PO ONE (17:00)
--- NOTE | 2019-05-08 19:15 | NUR ---
Opening Shift Note Assumed care of patient, awake and alert. No S/S of distress/SOB or pain. Instructed on POC and to call for assist PRN, will continue to monitor for changes Q1hr and PRN. Addendum: 05/08/19 at 1954 by Estuardo Alex RN Patient reports having chest discomfort. He states that the discomfort has been consistent all day. The patient did not request any pain medication.
[2019-05-08] MEDS: ATORVASTATIN 20 MG TAB PO SCH (21:25)
[2019-05-08 22:00] VITALS: BP 160/77
[2019-05-09] MEDS: InsuLIN REG 1unit/0.01ml Soln (100units/ml) SC SCH ×4 (00:04→18:06)
[2019-05-09] MEDS: ACCU-CHEK COMFORT CURVE STRIP VI SCH ×4 (00:05→18:06)
[2019-05-09 05:00] VITALS: BP 148/71
[2019-05-09] MEDS: hydrALAZINE HCL 25 MG TAB PO SCH ×3 (05:27→21:35)
--- NOTE | 2019-05-09 06:20 | NUR ---
mergers and acquisitions consultant is at the patient's bedside.
[2019-05-09] MEDS ORDERED: SODIUM CHL 0.9% 1000 ML BAG XX ONE (07:00)
[2019-05-09] MEDS: SOD CHL 0.45% 1,000 ML IV SCH ×2 (07:18→19:55)
[2019-05-09] MEDS: PANTOPRAZOLE 40 MG TAB PO SCH (07:19)
[2019-05-09 08:00] VITALS: BP 162/69
--- NOTE | 2019-05-09 08:00 | NUR ---
Opening Shift Note Assumed care of patient, awake and alert. No S/S of distress/SOB or pain. Hemodialysis ongoing. Instructed on POC and to call for assist PRN, will continue to monitor for changes Q1hr and PRN.
[2019-05-09 09:33] LABS: BUN/Creatinine Ratio 8.2; Calcium 7.5 mg/dL (8.5-10.1); Potassium 3.9 mmol/L (3.5-5.1)
[2019-05-09] MEDS: CARVEDILOL 12.5 MG TAB PO SCH ×3 (10:00→21:49)
--- NOTE | 2019-05-09 10:00 | NUR ---
Held Coreg PO for HR-54bpm.
[2019-05-09] MEDS: LEVOFLOXACIN 250MG 50 ML IV SCH (10:20)
[2019-05-09] MEDS: LEVETIRACETAM 500 MG TAB PO SCH ×2 (10:21→21:36)
[2019-05-09] MEDS: predniSONE 20 MG TAB PO SCH (10:21)
[2019-05-09] MEDS: amLODIPine BESYLATE 5 MG TAB PO SCH (10:22)
[2019-05-09] MEDS: ASPirin 81 mg TAB PO SCH (10:23)
--- NOTE | 2019-05-09 10:30 | NUR ---
Dialysis done. 2Liters taken out.
[2019-05-09 13:00] VITALS: BP 191/84
--- NOTE | 2019-05-09 14:50 | NUR ---
Called Dr. Dangelo to inform him that patient is for tunneled dialysis catheter insertion at 0900am tomorrow at [facility] as verified with Becky MAZARIEGOStube wrapper. Per Dr. Dangelo please refer to nephrology re: arrangement of chair time for outpatient hemodialysis.
--- NOTE | 2019-05-09 15:13 | NUR ---
Paged Dr. Evans re: arrangement for hemodialysis chair time after tunneled dialysis catheter insertion. Waiting for call back.
--- NOTE | 2019-05-09 16:09 | NUR ---
Chair time: I faxed over Dialysis packet to [facility] (f # [phone]) after speaking to Lesli at Dr. Evans"s office. Primary SS Ginny barney.
[2019-05-09 16:57] VITALS: BP 143/60
[2019-05-09] MEDS ORDERED: WARFARIN SODIUM 10 MG TAB PO ONE (17:00)
--- NOTE | 2019-05-09 17:02 | NUR ---
Coumadin Po held for procedure tomorrow.
[2019-05-09] MEDS: ATORVASTATIN 20 MG TAB PO SCH (21:35)
[2019-05-09 22:00] VITALS: BP 141/63
[2019-05-10] MEDS: ACCU-CHEK COMFORT CURVE STRIP VI SCH ×3 (00:28→12:00)
[2019-05-10] MEDS: InsuLIN REG 1unit/0.01ml Soln (100units/ml) SC SCH ×3 (00:28→12:50)
[2019-05-10 05:00] VITALS: BP 150/75
[2019-05-10] MEDS: hydrALAZINE HCL 25 MG TAB PO SCH (05:44)
[2019-05-10] MEDS: PANTOPRAZOLE 40 MG TAB PO SCH (06:04)
[2019-05-10 06:17] LABS: INR 1.02 (0.9-1.15)
--- NOTE | 2019-05-10 07:45 | NUR ---
Opening Shift Note Assumed care of patient, awake and alert. No S/S of distress/SOB or pain. Instructed on POC and to call for assist PRN, will continue to monitor for changes Q1hr and PRN. Bed locked in lowest position with two side rails up and call light in reach.
--- NOTE | 2019-05-10 08:00 | NUR ---
PATIENT TAKEN TO BIOINFORMATICS ANALYST FOR TUNNEL CATH
[2019-05-10] MEDS ORDERED: LIDOCAINE 2%HCL (LOCAL ANESTH.) INJ 20ML MDV ONE (08:55)
[2019-05-10 09:00] VITALS: BP 157/75
[2019-05-10] MEDS ORDERED: HEPARIN SODIUM (PORCINE) 5000 UNITS/ML 1ML VIAL ONE (09:13)
[2019-05-10] MEDS ORDERED: fentaNYL CITRATE 100 MCG/2 ML VL ONE (09:13)
[2019-05-10] MEDS ORDERED: MIDAZOLAM HCL 1MG/1ML-2 ML VIAL ONE (09:14)
[2019-05-10] MEDS: SOD CHL 0.45% 1,000 ML IV SCH (09:15)
[2019-05-10] MEDS ORDERED: ceFAZolin 1GM/50ML 0 ML IV ONE (09:29)
[2019-05-10] MEDS ORDERED: LEVOFLOXACIN 250 MG TAB PO SCH (10:00)
--- NOTE | 2019-05-10 10:47 | NUR ---
DR MIX AT NURSING STATION PATIENT TO BE DISCHARGED ONCE HE HAS CHAIR TIME SET UP AND CLEARED FROM ETIENNE.
--- NOTE | 2019-05-10 11:15 | NUR ---
PATIENT BACK FROM TALENT PROGRAM MANAGER, PATIENT A/O X 4 NO SIGNS AND SYMPTOMS OF DISTRESS NOTED. RIGHT GROIN AREA DRESSING CLEAN, DRY, AND INTACT. TUNNEL CATH TO THE RIGHT SUBCLAVIAN AREA, ALSO C/D/I. PATIENT TO LAY FLAT UNTIL 12:20 PER TALENT PROGRAM MANAGER NURSE CHLOÉ. WILL CONTINUE TO MONITOR.
--- NOTE | 2019-05-10 11:58 | NUR ---
DR ETIENNE ROUNDING. PER PATIENT HE IS WILLING TO STAY LOCAL ONCE DISCHARGED TO HAVE DIALYSIS DONE ON MONDAY AT 1415 CHAIR TIME IS Saturdays AT 1415. AT DR ETIENNE OFFICE ON [address]. PATIENT VERBALLY AGREES. WILL LET INSPECTOR PACKER GLASS CONTAINER KNOW.
[2019-05-10] MEDS: predniSONE 20 MG TAB PO SCH ×2 (12:46→12:49)
[2019-05-10] MEDS: ASPirin 81 mg TAB PO SCH (12:46)
[2019-05-10] MEDS: DOXYCYCLINE 100 MG TAB/CAP PO SCH ×2 (12:46→12:49)
[2019-05-10] MEDS: LEVETIRACETAM 500 MG TAB PO SCH (12:46)
[2019-05-10] MEDS: amLODIPine BESYLATE 5 MG TAB PO SCH (12:47)
[2019-05-10] MEDS: CARVEDILOL 12.5 MG TAB PO SCH (12:47)
[2019-05-10 13:00] VITALS: BP 153/85
--- NOTE | 2019-05-10 14:25 | NUR ---
Lesli from Dr. Evans's office called and stated pt's chair time is 1415 hrs T-TH- Sat . for !st time appt, needs to be there at 1330 hrs
[2019-05-10 14:27] VITALS: BP 153/84
--- NOTE | 2019-05-10 18:48 | NUR ---
Discharge planning per note, patient has order for home health for INR check in 2-3 days and safety eval. Referral faxed to [facility], placed a follow up call, spoke with [facility], was advised that they will accept this patient and will see him on Monday. Patient has next dialysis on 05.14, information of facility location and number provided to patient. He has transportation set up through [employer] and that number as well was provided to him. Patient said he will go to [place] after treatment on Monday to [address] [facility] [id number], his phone number is [phone]. Patient was advised to contact his health plan to make the changes to ensure continuity of care. Dr. Evans and Loreto were advised that patient's next dialysis was Monday, and they were okay to discharge patient. Patient will dc to the following address however indicated because of personal dynamics, he may go to a motel. [facility] was advised to contact patient prior to service for location. [id number] [facility] [address]. Nurse Kezia was advised of the dc plan. Reinaldo SALINAS on site-[facility] and was advised of dc plan, assisted in transportation with [employer], and advised of accepting home health for auth. Addendum: 05/10/19 at 1855 by MORRIS FRANCO SS Amended: Links added.
== END 2019-05-10 16:33 | disposition home health service (06) | DRG 280 ==
LOC: EDUNIT# 00:55 → EDBD 00:55 → ER 00:55 → TELE 00:56 → TELE-CENTR 08:04 → DOU IN ICU 14:57 → TELE-EAST 05-07 18:59
PROVIDERS: ADMIT Nurse Practitioner; ATTEND Internal Medicine
PROC: B213YZZ Fluoroscopy of Multiple Coronary Artery Bypass Grafts using Other Contrast (ICD-10-PCS; principal; 2019-05-06)
PROC: B218YZZ Fluoroscopy of Left Internal Mammary Bypass Graft using Other Contrast (ICD-10-PCS; 2019-05-06)
PROC: B211YZZ Fluoroscopy of Multiple Coronary Arteries using Other Contrast (ICD-10-PCS; 2019-05-06)
PROC: B41CYZZ Fluoroscopy of Pelvic Arteries using Other Contrast (ICD-10-PCS; 2019-05-06)
PROC: 5A1D70Z Performance of Urinary Filtration, Intermittent, Less than 6 Hours Per Day (ICD-10-PCS; 2019-05-06)
PROC: 5A1D70Z Performance of Urinary Filtration, Intermittent, Less than 6 Hours Per Day (ICD-10-PCS; 2019-05-09)
PROC: 0JH63XZ Insertion of Tunneled Vascular Access Device into Chest Subcutaneous Tissue and Fascia, Percutaneous Approach (ICD-10-PCS; 2019-05-10)
PROC: 02H633Z Insertion of Infusion Device into Right Atrium, Percutaneous Approach (ICD-10-PCS; 2019-05-10)
PROC: B5181ZA Fluoroscopy of Superior Vena Cava using Low Osmolar Contrast, Guidance (ICD-10-PCS; 2019-05-10)
PROC: B548ZZA Ultrasonography of Superior Vena Cava, Guidance (ICD-10-PCS; 2019-05-10)
DX: I21.4 Non-ST elevation (NSTEMI) myocardial infarction (principal); I50.43 Acute on chronic combined systolic (congestive) and diastolic (congestive) heart failure; N17.0 Acute kidney failure with tubular necrosis; I13.0 Hypertensive heart and chronic kidney disease with heart failure and stage 1 through stage 4 chronic kidney disease, or unspecified chronic kidney disease; J91.8 Pleural effusion in other conditions classified elsewhere; I48.91 Unspecified atrial fibrillation; N18.9 Chronic kidney disease, unspecified; Z66 Do not resuscitate; G40.909 Epilepsy, unspecified, not intractable, without status epilepticus; E11.21 Type 2 diabetes mellitus with diabetic nephropathy; E78.5 Hyperlipidemia, unspecified; D72.829 Elevated white blood cell count, unspecified; E11.22 Type 2 diabetes mellitus with diabetic chronic kidney disease; I25.10 Atherosclerotic heart disease of native coronary artery without angina pectoris; D64.9 Anemia, unspecified; Z91.19 Patient's noncompliance with other medical treatment and regimen; Z95.1 Presence of aortocoronary bypass graft; I25.2 Old myocardial infarction; Z86.73 Personal history of transient ischemic attack (TIA), and cerebral infarction without residual deficits; Z95.5 Presence of coronary angioplasty implant and graft; Z80.3 Family history of malignant neoplasm of breast; Z82.49 Family history of ischemic heart disease and other diseases of the circulatory system; Z83.3 Family history of diabetes mellitus; Z87.891 Personal history of nicotine dependence
CPT/HCPCS: 36415; 36561; 71045; 75710; 76942; 78582; 80048; 80053; 80074; 82962; 83036; 83735; 83880; 84484; 85025; 85379; 85610; 85730; 86850; 86900; 86901; 87081; 90935; 93005; 93306; 93455; 96365; 96375; 99152; 99153; G0378; J0690; J0885; J1642; J1815; J2250; J2405; Q9956; Q9967